=== PATIENT | female | born 1965 | race African-American/Black ===

== ENCOUNTER 2016-06-12 06:17 | Inpatient (IN) | payer OTHER ==
[2016-06-11 15:31] VITALS: BMI 64.0
[2016-06-12] MEDS ORDERED: ACETAMINOPHEN INJECTION 100 ML IVPB ONE (07:16)
[2016-06-12] MEDS ORDERED: DEXAMETHASONE SOD PHOSPHATE 4 MG/1 ML VIAL ONE (07:27)
[2016-06-12] MEDS ORDERED: ePHEDrine SULFATE 50 MG/1 ML AMPULE ONE (07:27)
[2016-06-12] MEDS ORDERED: PROPOFOL 20 ML ONE ×3 (07:27)
[2016-06-12] MEDS ORDERED: SUCCINYLCHOLINE CHLORIDE 200 MG/10 ML VIAL ONE (07:27)
[2016-06-12] MEDS ORDERED: ceFAZolin SODIUM 1 GM VIAL ONE (07:27)
[2016-06-12] MEDS ORDERED: MIDAZOLAM HCL 2 MG/2 ML SINGLE DOSE VIAL ONE (07:28)
[2016-06-12] MEDS ORDERED: ROCURONIUM BROMIDE 50 MG/5 ML VIAL ONE ×2 (07:28)
[2016-06-12] MEDS ORDERED: SODIUM CHLORIDE 0.9% P/F 10 ML VIAL IJ ONE ×2 (07:31→08:34)
[2016-06-12] MEDS ORDERED: LIDOCAINE HCL/PF 2% SDV 5ML VIAL ONE (07:33)
[2016-06-12] MEDS ORDERED: IBUPROFEN 800 MG/8 ML IJ IVPB ONE (07:57)
[2016-06-12] MEDS ORDERED: BUPIVACAINE HCL/PF 0.25% (2.5MG/ML) 10 ML VIAL ONE (08:17)
[2016-06-12] MEDS ORDERED: GENTAMICIN SO4 80 MG/2 ML VIAL ONE (08:17)
[2016-06-12] MEDS ORDERED: ceFAZolin SODIUM 1 GM VIAL IVPB ONE (08:38)
[2016-06-12] MEDS ORDERED: BUPIVACAINE HCL/PF 0.25% (2.5MG/ML) 10 ML VIAL IJ ONE ×2 (09:15→10:28)
[2016-06-12] MEDS ORDERED: NEOSTIGMINE METHYLSULFATE 0.5 MG/ML - 10 ML MDV ONE (09:27)
[2016-06-12] MEDS ORDERED: GLYCOPYRROLATE 0.2 MG/1 ML VIAL ONE (09:27)
[2016-06-12] MEDS ORDERED: PROMETHAZINE HCL 25 MG/1 ML VIAL IVPUSH PRN (11:11)
[2016-06-12] MEDS ORDERED: ONDANSETRON 4 MG/2 ML VIAL IVPUSH PRN ×2 (11:11)
[2016-06-12] MEDS ORDERED: LACTATED RINGERS SOLUTION 1,000 ML IV SCH (11:15)
[2016-06-12] MEDS ORDERED: TRIMETHOBENZAMIDE HCL 200MG/2ML INJ IM PRN (11:19)
[2016-06-12 12:10] LABS: MCH 27.5 pg (25.7-33.7); MCHC 32.2 g/dl (32.0-36.0); MEAN CELL VOLUME 85.5 fl (80-96); MEAN PLT VOLUME 9.7 fl (7.5-11.1); PLATELET COUNT 222 K/MM3 (134-434); RDW 14.9 % (11.6-15.6); WHITE BLOOD COUNT 10.6 K/mm3 (4.0-10.0)
[2016-06-12] MEDS: SODIUM CHLORIDE 1,000 ML IV SCH (12:15)
[2016-06-12] MEDS: HYDROmorphone *PCA* 10MG/50ML DISP.SYRIN PCA SCH (12:15)
[2016-06-12 12:32] LABS: ALBUMIN 3.4 g/dl (3.4-5.0); ALK PHOS 124 U/L (45-117); ANION GAP 9 (8-16); BILIRUBIN,TOTAL 0.2 mg/dL (0.2-1.0); CALCIUM 8.5 mg/dL (8.5-10.1); CO2 28 mmol/L (21-32); CREATININE 0.8 mg/dL (0.55-1.02); GLUCOSE,RANDOM 171 mg/dL (74-106); SGOT/AST 51 U/L (15-37); SGPT/ALT 42 U/L (12-78); TOT PROT 7.8 g/dl (6.4-8.2)
--- NOTE | 2016-06-12 15:21 | OP ---
OPERATIVE REPORT DATE OF OPERATION: 06/12/2016 PROCEDURES PERFORMED: 1. Laparoscopic vertical sleeve gastrectomy. 2. Wedge biopsy of the left lobe of the liver. 3. Diagnostic laparoscopy. PREOPERATIVE DIAGNOSIS: 1. Morbid obesity. 2. Sleep apnea. 3. Hypertension. 4. Elevated liver function test. POSTOPERATIVE DIAGNOSIS: 1. Morbid obesity. 2. Sleep apnea. 3. Hypertension. 4. Elevated liver function test. 5. Hepatomegaly. SURGEON: Jasiel Perry MD WARP TYING MACHINE KNOTTER: Tin Clarke MD ANESTHESIA: General. ESTIMATED BLOOD LOSS: 30 mL OPERATIVE PROCEDURE: The patient was brought into the operating room and placed on the operating room table in supine position. All precautions were taken initially, including padding for the back and the feet and Venodyne boots were placed on both lower extremities. At that point, the abdomen was prepped and draped in the usual manner. A Veress needle was placed in the left upper quadrant and pneumoperitoneum was established. A number 12 bladeless trocar was placed in the left upper quadrant. Through that trocar, a laparoscopic camera was placed. Under direct vision, a number 15 bladeless trocar was placed in the midline in a supraumbilical position, followed by a number 5 bladeless trocar in the right upper quadrant and a number 5 bladeless trocar below the left costal margin. A Delfina liver retractor was then placed in the epigastrium to retract the left lobe of the liver. The left lobe was noted to be extremely enlarged and with the elevated liver function test preoperatively, it was decided that a liver biopsy would be performed. With the electrocautery turned high, laparoscopically, a portion of the edge of the left lobe of the liver was dissected. The cautery first dissected the of the liver and then the parenchyma, and the specimen was sent off the field to Pathology. The liver parenchyma bleeding was easily controlled with electrocautery. At this juncture, the patient was placed in a 20-degree reverse Trendelenburg position, and attention was directed to the pylorus of the stomach. Six centimeters were measured proximally and here, on the greater curve, the LigaSure device was used to dissect the short gastric vessels off the greater curve of the stomach. Then, we continued in the superior and vertical direction until the final short gastric vessel between the superior pole of the spleen and proximal fundus was divided. At this point, the no. 40 bougie, which had been working as an NG tube, was still in place and was along the lesser curvature. A series of geronimo was now begun 6 cm proximal pylorus. These were black load geronimo, the first two 6 cm along the bougie. This was followed with purple load stables, also along the bougie. It should be noted that prior to firing each staple, the anterior and posterior ernst of the lesser curve were checked to make sure they were equal. In the area of esophagogastric junction, approximately 1- to 1.5 cm of serosa remained. The final bougie was fired in the left quadrant and the greater curve was now completely detached from the lesser curve. At this juncture, saline was placed around the staple line. Anesthesia inserted air into the bougie, which showed the entire stomach distended down to the pylorus. No obstruction or leaks were noted. At this point, the bougie was removed and the greater curve specimen of stomach was removed with a number 15 trocar site and sent off the field as specimen. Under direct vision, the number 15-12 trocar sites were closed with the Endo Close device to prevent internal hernia and to prevent bleeding. Under direct vision, all trocars were removed and pneumoperitoneum was released. All trocar sites were treated with 0.25% Marcaine and were closed with 4-0 Biosyn in subcuticular fashion. Dressings were applied. The patient woke from anesthesia and was transferred out of the operating room to the recovery room in stable condition. Venessa [id number]
[2016-06-12] MEDS ORDERED: PROMETHAZINE HCL 25 MG/1 ML VIAL IVPB PRN (18:00)
[2016-06-12] MEDS: FAMOTIDINE 20 MG/50 ML IVPB 50 ML IVPB SCH (21:20)
[2016-06-12] MEDS: ENOXAPARIN NA (PORCINE) 40 MG/0.4 ML DISP.SYRIN SQ SCH (21:21)
[2016-06-13] MEDS: SODIUM CHLORIDE 1,000 ML IV SCH ×2 (04:45→10:50)
[2016-06-13 07:10] LABS: MCHC 32.7 g/dl (32.0-36.0); MEAN CELL VOLUME 85.5 fl (80-96); MEAN PLT VOLUME 9.4 fl (7.5-11.1); PLATELET COUNT 221 K/MM3 (134-434); RDW 14.9 % (11.6-15.6); WHITE BLOOD COUNT 9.8 K/mm3 (4.0-10.0)
[2016-06-13 07:32] LABS: ALBUMIN 2.9 g/dl (3.4-5.0); ANION GAP 7 (8-16); BILIRUBIN,TOTAL 0.5 mg/dL (0.2-1.0); CALCIUM 8.1 mg/dL (8.5-10.1); CO2 30 mmol/L (21-32); CREATININE 0.6 mg/dL (0.55-1.02); GLUCOSE,RANDOM 105 mg/dL (74-106); SGOT/AST 35 U/L (15-37); SGPT/ALT 36 U/L (12-78); TOT PROT 6.5 g/dl (6.4-8.2)
[2016-06-13 07:33] LABS: ALK PHOS 97 U/L (45-117)
--- NOTE | 2016-06-13 10:44 | PN ---
Progress Note (short form) - Note Progress Note: Anesthesia POD#1 S/P Gastric Sleeve under GA and INSURANCE CLAIMS ANALYST Patient is OB to chair . She had nausea yesterday better today. Continue INSURANCE CLAIMS ANALYST today, possibly DC tomorrow as food is advanced. DARLING Cesar.
[2016-06-13] MEDS: amLODIPine BESYLATE 5 MG TABLET (FP) PO SCH (10:53)
[2016-06-13] MEDS: ENOXAPARIN NA (PORCINE) 40 MG/0.4 ML DISP.SYRIN SQ SCH ×2 (10:53→21:33)
[2016-06-13] MEDS: FAMOTIDINE 20 MG/50 ML IVPB 50 ML IVPB SCH ×2 (10:53→21:33)
[2016-06-13] MEDS: HYDROmorphone *PCA* 10MG/50ML DISP.SYRIN PCA SCH (11:37)
[2016-06-13] MEDS ORDERED: SODIUM CHLORIDE 0.9% 500 ML INFUS.BAG IV ONE (14:39)
[2016-06-13] MEDS ORDERED: OXYCODONE/APAP 5/325MG COMBO TABLET PO PRN (14:42)
--- NOTE | 2016-06-13 14:43 | HP ---
Admitting History and Physical - Primary Care Physician PCP: Rosa Young - Admission Chief Complaint: S/P GI SURGERY History Source: Medical Record - Past Medical History ...LMP Comment: pt states over 2 years ago - Smoking History Smoking history: Never smoked Have you smoked in the past 12 months: No - Alcohol/Substance Use Hx Alcohol Use: Yes (SOCIAL) Home Medications - Allergies Allergies/Adverse Reactions: Allergies Allergy/AdvReac Type Severity Reaction Status Date / Time No Known Allergies Allergy Verified 06/11/16 15:32 - Home Medications Home Medications: Ambulatory Orders Valsartan [Diovan] 80 mg PO DAILY 11/16/13 Amlodipine Besylate 5 mg PO DAILY 06/11/16 Oxycodone HCl/Acetaminophen [Percocet 5-325 mg Tablet] 1 - 2 tab PO Q6H #28 tab MDD 4 06/12/16 Amlodipine Besylate [Norvasc -] 5 mg PO DAILY tablet 06/13/16 Famotidine [Pepcid] 20 mg PO BID #60 tablet 06/13/16 Review of Systems - Review of Systems Constitutional: denies: Chills, Fever Cardiovascular: denies: Chest Pain Respiratory: denies: SOB Gastrointestinal: reports: Abdominal Pain (MILD) Physical Examination Vital Signs: Vital Signs Temperature 98.3 F 06/13/16 14:00 Pulse Rate 66 06/13/16 14:00 Respiratory Rate 20 06/13/16 14:00 Blood Pressure 138/84 06/13/16 14:00 O2 Sat by Pulse Oximetry (%) 97 06/12/16 21:00 Constitutional: Yes: Calm Cardiovascular: Yes: Regular Rate and Rhythm, S1, S2 Respiratory: Yes: CTA Bilaterally Gastrointestinal: Yes: Normal Bowel Sounds, Soft, Tenderness (MILD. L ABD). No : Tenderness, Rebound Edema: No Labs: CBC, BMP 06/13/16 06:00 06/13/16 06:00 Imaging - Results X-ray: Report Reviewed Problem List - Problems (1) History of sleeve gastrectomy Code(s): Z98.89 - OTHER SPECIFIED POSTPROCEDURAL STATES * DO NOT USE * (2) HTN (hypertension) Code(s): I10 - ESSENTIAL (PRIMARY) HYPERTENSION Assessment/Plan 1. S/P SLEEVE GASTRECTOMY APPRECIATE SURG NOTE POD #1 2. HTN DISCHARGE PLANNING 06/13
--- NOTE | 2016-06-13 14:44 | PN ---
Progress Note (short form) - Note Progress Note: POD #1 Pt doing well Pulse 60-70 BP- 138-142 Pt oob-chair no N/V P/e- no leak no obstruction P/E- Abd- all trocar sites clean, dry WBC-9.6 H/H- 11.9/36 LFT- WNL P- Begin clear liquids- 2 oz po tid increase oob- ambulate Continue DVT prophylaxis Cont incentive spirometer
--- NOTE | 2016-06-13 15:32 | PATH ---
Surgical Pathology Report Patient Name: NAZANIN PEARL [facility]. Rec. #: [id number] /Age/Gender: 1965 (Age: 50) / F Account: [id number] Location: 4 SO PEDS/ADOL Taken: 06/12/2016 Received: 06/12/2016 Reported: 06/13/2016 Physicians: Jasiel Perry M.D. Specimen(s) Received A: GREATER CURVATURE OF STOMACH B: LIVER WEDGE Clinical History Morbid obesity Final Diagnosis A. STOMACH, GREATER CURVATURE, LAPAROSCOPIC SLEEVE GASTRECTOMY: STOMACH WITH MODERATE CHRONIC GASTRITIS. IMMUNOSTAIN FOR H. PYLORI IS NEGATIVE FOR ORGANISMS. B. LIVER, WEDGE BIOPSY: SUBCAPSULAR LIVER TISSUE WITH SINUSOIDAL DILATATION AND FOCAL CONGESTION WITH CAUTERY ARTIFACT; FOCAL MILD PORTAL FIBROSIS (LIMITED EVALUATION OF FIBROSIS DUE TO THE SUBCAPSULAR NATURE OF TISSUE). SEE COMMENT. Comment: The sections show subcapsular liver tissue with cautery artifact. The liver architecture appears preserved. The portal areas show only focal scant inflammation. No interface activity is noted. No significant ductular proliferation or bile duct injury is seen. No portal granulomas are seen. The lobules show scattered inflammatory cells, predominantly lymphocytes and rare neutrophils, and sinusoidal dilatation. No lobular granulomas are identified. No significant steatosis is noted. The trichrome stain highlights focal mild portal fibrosis. The iron stain shows no siderosis. Overall, the biopsy shows sinusoidal dilatation and focal congestion. While non-specific, it may be seen in passive congestion and outflow impairment; it may also be seen in systemic inflammatory and granulomatous diseases, neoplasms, abdominal surgery as well as may be idiopathic. The evaluation is somewhat limited due to the subcapsular nature of the tissue and cautery artifact. Clinical and serological correlations are suggested. Electronically Signed Bo Matamoros M.D. Gross Description A. Received in formalin, labeled "greater curvature of stomach" is a 77 gram, 17.0 x 4.0 x 3.0 cm. portion of stomach with a stapled margin of resection. The serosa is maciel-gutierrez with minimal attached fat. The mucosa is maciel-pink with focally flattened folds. No mucosal masses are identified. Ripshear Operator sections are submitted in one cassette. B. Received in formalin, labeled "wedge biopsy left lobe of liver" is a 0.9 x 0.9 x 0.6 cm maciel, irregular portion of soft tissue, consistent with a portion of liver. The specimen is trisected and entirely submitted in one cassette. 06/12/201606/12/2016
[2016-06-13] MEDS: oxyCODONE HCL 5 MG TABLET PO PRN (17:06)
[2016-06-13] MEDS: ACETAMINOPHEN 325 MG TABLET (FP) PO PRN (17:06)
[2016-06-13] MEDS ORDERED: SODIUM CHLORIDE 1,000 ML IV SCH (20:00)
[2016-06-14] MEDS: oxyCODONE HCL 5 MG TABLET PO PRN ×2 (05:45→10:35)
[2016-06-14] MEDS: ACETAMINOPHEN 325 MG TABLET (FP) PO PRN ×2 (05:46→10:34)
[2016-06-14 06:38] VITALS: TEMP 98.7
[2016-06-14 07:32] LABS: BASOPHIL 0.4 % (0-2.0); EOSINOPHIL 2.1 % (0-4.5); MCH 28.5 pg (25.7-33.7); MCHC 33.4 g/dl (32.0-36.0); MEAN CELL VOLUME 85.2 fl (80-96); MEAN PLT VOLUME 9.8 fl (7.5-11.1); NEUTROPHILS 63.8 % (42.8-82.8); PLATELET COUNT 191 K/MM3 (134-434); RDW 14.9 % (11.6-15.6); WHITE BLOOD COUNT 9.3 K/mm3 (4.0-10.0)
[2016-06-14] MEDS ORDERED: PT OWN MED DRAWER 7, Y5N ONE (10:22)
[2016-06-14] MEDS: amLODIPine BESYLATE 5 MG TABLET (FP) PO SCH (10:26)
[2016-06-14] MEDS: FAMOTIDINE 20 MG/50 ML IVPB 50 ML IVPB SCH (10:26)
[2016-06-14] MEDS: ENOXAPARIN NA (PORCINE) 40 MG/0.4 ML DISP.SYRIN SQ SCH (10:26)
--- NOTE | 2016-06-14 11:41 | PN ---
Progress Note, Physician History of Present Illness: NO CP OR SOB MINIMAL ABDOMINAL PAIN - Current Medication List Current Medications: Active Medications Acetaminophen (Tylenol -) 325 mg PO Q4H PRN PRN Reason: FEVER OR PAIN Last Admin: 06/14/16 10:34 Dose: 325 mg Amlodipine Besylate (Norvasc -) 5 mg PO DAILY [facility] Last Admin: 06/14/16 10:26 Dose: 5 mg Diphenhydramine HCl (Benadryl Injection -) 12.5 mg IVPUSH ONCE PRN PRN Reason: FOR ITCHING Enoxaparin Sodium (Lovenox -) 40 mg SQ BID [facility] Last Admin: 06/14/16 10:26 Dose: 40 mg Fentanyl (Sublimaze Injection -) 50 mcg IVPUSH [id number] PRN PRN Reason: PAIN Stop: 06/15/16 11:12 Last Admin: 06/12/16 12:00 Dose: 50 mcg Famotidine/Sodium Chloride (Pepcid 20 Mg Premixed Ivpb -) 50 mls @ 100 mls/hr IVPB BID [facility] Last Admin: 06/14/16 10:26 Dose: 100 mls/hr Sodium Chloride (Normal Saline -) 1,000 mls @ 75 mls/hr IV ASDIR [facility] Last Admin: 06/13/16 21:33 Dose: 75 mls/hr Potassium Chloride (Potassium Chloride 10 Meq Premix Ivpb -) 100 mls @ 100 mls/ hr IVPB Q60M [facility] Stop: 06/14/16 12:44 Oxycodone HCl (Roxicodone -) 5 mg PO Q4H PRN Last Admin: 06/14/16 10:35 Dose: 5 mg Promethazine HCl (Phenergan Injection -) 12.5 mg IVPB Q6H PRN PRN Reason: NAUSEA AND/OR VOMITING Trimethobenzamide HCl (Tigan Injection -) 200 mg IM Q8H PRN PRN Reason: NAUSEA - Objective Vital Signs: Vital Signs Temperature 98.7 F 06/14/16 06:00 Pulse Rate 67 06/14/16 06:00 Respiratory Rate 20 06/14/16 06:00 Blood Pressure 136/79 06/14/16 06:00 O2 Sat by Pulse Oximetry (%) 98 06/13/16 21:00 Cardiovascular: Yes: Regular Rate and Rhythm Respiratory: Yes: Regular, CTA Bilaterally Gastrointestinal: Yes: Normal Bowel Sounds, Soft Labs: CBC, BMP 06/14/16 06:00 06/14/16 06:00 Problem List - Problems (1) HTN (hypertension) Assessment/Plan: MONITOR Code(s): I10 - ESSENTIAL (PRIMARY) HYPERTENSION (2) History of sleeve gastrectomy Assessment/Plan: PER SURGERY DIET PER SURGERY Code(s): Z98.89 - OTHER SPECIFIED POSTPROCEDURAL STATES * DO NOT USE *
[2016-06-14] MEDS ORDERED: KCL 10 MEQ IVPB 100 ML IVPB SCH (11:45)
[2016-06-14 12:14] LABS: ALK PHOS 94 U/L (45-117); ANION GAP 10 (8-16); BILIRUBIN,TOTAL 0.6 mg/dL (0.2-1.0); CALCIUM 8.1 mg/dL (8.5-10.1); CO2 25 mmol/L (21-32); CREATININE 0.6 mg/dL (0.55-1.02); GLUCOSE,RANDOM 89 mg/dL (74-106); SGOT/AST 27 U/L (15-37); SGPT/ALT 35 U/L (12-78); TOT PROT 6.6 g/dl (6.4-8.2)
[2016-06-14 12:55] VITALS: BP 137/76; PULSE 66
== END 2016-06-14 13:58 | disposition home or self-care (01) | DRG 621 ==
LOC: JSAMEDAYSX 06:17 → J4S 13:43
PROVIDERS: ADMIT Surgery; ATTEND Surgery
PROC: 0FB24ZX Excision of Left Lobe Liver, Percutaneous Endoscopic Approach, Diagnostic (ICD-10-PCS; 2016-06-12)
PROC: 0DB64Z3 Excision of Stomach, Percutaneous Endoscopic Approach, Vertical (ICD-10-PCS; principal; 2016-06-12 08:00)
DX: E66.01 Morbid (severe) obesity due to excess calories (principal); Z68.44 Body mass index [BMI] 60.0-69.9, adult; Z71.3 Dietary counseling and surveillance; I10 Essential (primary) hypertension; G47.39 Other sleep apnea; R79.89 Other specified abnormal findings of blood chemistry; R16.0 Hepatomegaly, not elsewhere classified
CPT/HCPCS: 36415; 74241-TC; 80053; 84703; 85025; 85027; 86850; 86900; 86901; 88305-TC; 88307-TC; 94010; 94760

== ENCOUNTER 2023-03-28 16:00 | Emergency (ER) | payer OTHER ==
[2023-03-28 16:08] VITALS: BP 99/69; PULSE 72; RESP 20; TEMP 98.2; BMI 54.8
[2023-03-28] MEDS ORDERED: diphenhydrAMINE HCL 25 MG CAPSULE (FP) PO ONE ×2 (17:53→17:57)
[2023-03-28] MEDS ORDERED: DEXAMETHASONE SOD PHOSPHATE 10 MG/1 ML VIAL IM ONE (17:53)
[2023-03-28] MEDS ORDERED: DEXAMETHASONE SOD PHOSPHATE 10 MG/1 ML VIAL ONE (17:57)
== END 2023-03-28 18:47 | disposition home or self-care (01) ==
LOC: JER 16:00
PROC: 3E023GC Introduction of Other Therapeutic Substance into Muscle, Percutaneous Approach (ICD-10-PCS; principal; 2023-03-28)
DX: L29.9 Pruritus, unspecified (principal); R22.0 Localized swelling, mass and lump, head; T78.40XA Allergy, unspecified, initial encounter
CPT/HCPCS: 99284-25; J1100

== ENCOUNTER 2023-08-01 16:02 | Emergency (ER) | payer OTHER ==
[2023-08-01 16:37] VITALS: BP 114/59; PULSE 70; RESP 18; TEMP 98.3; BMI 54.3
[2023-08-01 16:45] LABS: EPI CELLS >36 /uL (0-25.1); HYALINE CASTS 3 /uL (0-3.1); PH,URINE 5.5 (5.0-8.0); URINE APPEARANCE CLOUDY; URINE BACTERIA 414 /uL (0-1359); URINE BILIRUBIN NEGATIVE (NEGATIVE); URINE COLOR YELLOW; URINE GLUCOSE (UA) NEGATIVE (NEGATIVE); URINE KETONE NEGATIVE (NEGATIVE); URINE LEUK ESTERASE 3+ (NEGATIVE); URINE NITRITE NEGATIVE (NEGATIVE); URINE PROTEIN 1+ (NEGATIVE); URINE RBC 20 /uL (0-23.9); URINE WBC 823 /uL (0-25.8)
[2023-08-01 17:05] LABS: YEAST NONE SEEN (NEGATIVE)
== END 2023-08-01 18:30 | disposition home or self-care (01) ==
LOC: JER 16:02
DX: L29.2 Pruritus vulvae (principal); N89.8 Other specified noninflammatory disorders of vagina; N90.89 Other specified noninflammatory disorders of vulva and perineum
CPT/HCPCS: 36415; 81003; 87070; 87086; 87186; 87205; 87491; 87591; 87661; 99283-25

== ENCOUNTER 2023-08-11 04:26 | Day surgery (SDC) | payer OTHER ==
[2023-08-07 09:46] VITALS: BMI 53.0
[2023-08-11 09:45] VITALS: TEMP 97.3
[2023-08-11 10:15] VITALS: PULSE 63
[2023-08-11 10:22] VITALS: BP 112/76; RESP 19
== END 2023-08-11 11:05 | disposition home or self-care (01) ==
LOC: JASU-ENDO 04:26
PROVIDERS: ATTEND Internal Medicine Gastroenterology
PROC: 0DB78ZX Excision of Stomach, Pylorus, Via Natural or Artificial Opening Endoscopic, Diagnostic (ICD-10-PCS; 2023-08-11)
PROC: 0DB68ZX Excision of Stomach, Via Natural or Artificial Opening Endoscopic, Diagnostic (ICD-10-PCS; principal; 2023-08-11 09:00)
DX: K29.50 Unspecified chronic gastritis without bleeding (principal); K44.9 Diaphragmatic hernia without obstruction or gangrene; Z87.19 Personal history of other diseases of the digestive system; I10 Essential (primary) hypertension
CPT/HCPCS: 88305-TC; 88342-TC